=== PATIENT | female | born 2000 | race Hispanic/Latino ===

== ENCOUNTER 2020-05-06 17:42 | Outpatient (CLI) | payer OTHER ==
[~2020-05-06] VITALS: Ht 154.9 cm; Wt 92.4 kg
[2020-05-06 18:03] VITALS: BP 139/88
[2020-05-06] MEDS ORDERED: PRENTAB9 PO (18:10)
--- NOTE | 2020-05-06 18:58 | IPNPDOC ---
Text Note Date of Service The patient was seen on 05/06/20. NOTE Patient is 20yo at 39.6wks by LMP c/w 7wk US. C/o dampness around 6am. No further leakage all day. No contractions. No gush of fluid or bleeding. Good movement. PE: VS WNL GEN NAD, Comfortable SVE: thick whiute clumpy discharge, no fluid. Nitrazine negative FHT: Category 1, 140s, reactive, no decels. contractions infrequent. A/P: Fetus reassuring. Patient not in labor and no rupture of membranes. Patient given labor precautions, rupture of membranes precautions and kick counts. She was also told to hydrate up to 3L per day due to the increased heat, She has a follow up appt this week. VS,Fishbone, I+O VS, Fishbone, I+O Vital Signs Date Time Temp Pulse Resp B/P (MAP) Pulse Ox O2 Delivery O2 Flow Rate FiO2 05/06/20 18:03 97.7 112 18 139/88 (105) Missy Estrada MD May 06, 2020 18:58
[2020-05-06] MEDS ORDERED: FLUCONAZOLE 50MG TABLET PO ONE (19:00)
== END 2020-05-06 19:05 | disposition home or self-care (01) ==
LOC: M LDO 17:42
PROVIDERS: ATTEND Obstetrics & Gynecology
DX: O26.893 Other specified pregnancy related conditions, third trimester (principal); B37.3 Candidiasis of vulva and vagina; Z3A.39 39 weeks gestation of pregnancy
CPT/HCPCS: 59025; G0378; G0463

== ENCOUNTER 2020-05-15 15:15 | Inpatient (IN) | payer OTHER ==
[2020-05-15] VITALS (7 sets, daily range): BP systolic 115–135; BP diastolic 57–74
[~2020-05-15] VITALS: Ht 154.9 cm; Wt 93.3 kg
[~2020-05-15 15:15] MED LIST: PRENTAB9 PO
[2020-05-15] MEDS ORDERED: LR 1,000 ML IV SCH (15:38)
[2020-05-15 16:08] LABS: HEMATOCRIT 37.1 % (36.0-47.0); HEMOGLOBIN 12.5 g/dl (12.0-15.5); MEAN CORPUSCULAR HEMOGLOBIN 26.5 pg (27.0-33.0); MEAN CORPUSCULAR HGB CONC 33.7 g/dl (32.0-36.5); MEAN CORPUSCULAR VOLUME 78.8 fl (80.0-96.0); PLATELET COUNT, AUTOMATED 234 10^3/uL (150-450); RED BLOOD COUNT 4.71 10^6/uL (4.00-5.40); WHITE BLOOD COUNT 8.1 10^3/uL (4.0-10.0)
[2020-05-15] MEDS ORDERED: miSOPROStol 25 MCG 1/4 TAB (S0191) SL ONE (16:15)
--- NOTE | 2020-05-15 16:23 | HPEPDOC ---
Obstetrical History & Physical General Date of Admission May 15, 2020 at 15:15 History of Present Illness patient is a 20 yo G1 @ 41+1wks gestation presents for IOL. patient denies CTX. Chief Complaint: Induction of labor Information Provided By: Patient Age: 20 : 1 Term: 0 Care Care: Good Care Dating Final EDC: May 07, 2020 Final EDC for Daily Update: May 07, 2020 Final EDC by: 1st trimester (US) (on [id number] @ 7+4wks) Past Medical History Past Obstetrical History : Past Obstetrical History: Primgravida Past Medical History Medical History denies Surgical History: Other (leg cyst removed) Family History Significant Family History: No pertinent family hx Social History Marital Status: Family situation: Spouse/partner home * Smoker: non-smoker Alcohol: Denies Drugs: denies Imunizations Tdap status: needs Influenza Status: current Allergies Coded Allergies: ibuprofen (Verified Allergy, Severe, throat swells, 05/06/20) Medications Scheduled No.137/Iron/Folic Acd ( Vitamin Tablet) 1 Each Tablet, 1 TAB PO DAILY Physical Examination Physical Examination GENERAL: Alert and oriented times three. BREAST: . ABDOMEN: Gravid and non-tender to touch. FETUS: Is vertex (VTX) by sterile vaginal examination (SVE), fetus is vertex (VTX) by Claudio. HEART RATE: Regular rate and rhythm. LUNGS: Clear to auscultation (CTA). EXTREMITIES: No edema/erythema/tenderness EFW: 3800gm Laboratory Data 24H LABS Laboratory Tests 2 05/15/20 15:42: Serology Scanned Report Hepatitis B Testing 05/15/20 15:53: Pertinent Laboratoy Data Blood Type: O- RBC Antibody Screen: Negative HIV: Negative Hepatitis B: Negative Rapid Plasma Reagin: Nonreactive Rubella: Immune Varicella: Immune Group B Streptococcus: Positive Cystic Fibrosis: Positive (spouse neg) Anatomy Ultrasound Placenta Location: Anterior Normal Anatomy: Yes Placenta Previa: No Vaginal Examination Dilation: None Cervical Consistency: Soft Cervical Position: Posterior Presentation: Cephalic presentation Assessment Heart Rate (FHR): 135 Variability: Moderate Accelerations: Positive Decelerations: None Tocometer Contractions: No Assessment/Plan Assessment patient is a 20 yo G1 @ 41+1wks gestation admitted for IOL. patient counseled regarding iol using cytotec, douglass bulb, oxytocin, arom as indicated. internal and external monitoring discussed. Risk of emergent section, infection, bleeding requiring blood transfusion, use of forceps and vacuums for assisted vaginal delivery, and episiotomy discussed with patient. Plan Admit and orient. Solution Make Up Operator and consent. Diet: regular Group B Streptococcus (GBS) positive. Labs and intravenous (IV) per unit protocol. anesthesia consult as indicated pcn for GBS prophy once in active labor pelvis adequate for trial of labor. DO TANYA Epstein LUAT N. May 15, 2020 16:23
[2020-05-15] MEDS: miSOPROStol 25 MCG 1/4 TAB (S0191) SL SCH (20:29)
[2020-05-16] VITALS (42 sets, daily range): BP systolic 102–147; BP diastolic 56–93
[2020-05-16] MEDS: miSOPROStol 25 MCG 1/4 TAB (S0191) SL SCH (01:28)
[2020-05-16] MEDS ORDERED: MORPHINE 10 MG/ML 1ML VIAL (J2270) IM ONE (07:00)
[2020-05-16] MEDS ORDERED: MORPHINE 10 MG/ML 1ML VIAL (J2270) IV ONE (07:00)
[2020-05-16] MEDS ORDERED: PROMETHAZINE INJ 25 MG/ML VIAL (J2550) IV ONE (07:00)
[2020-05-16] MEDS ORDERED: PROMETHAZINE INJ 25 MG/ML VIAL (J2550) IV PRN (08:00)
[2020-05-16] MEDS ORDERED: BUTORPHANOL 2 MG/ML INJ (J0595) IV ONE (08:00)
--- NOTE | 2020-05-16 08:39 | IPNPDOC ---
Text Note Date of Service The patient was seen on 05/16/20. NOTE patient feeling painful contractions. she received cytotec x 3 (25mcg, 50mcg x 2) buccal. vitals: normal fht: CAT I toco: ctx q 2-3mins ce: /-2 a/p patient in early labor, douglass bulb placed with 80cc cervical side. pain medication as needed. Start GBS once douglass bulb comes out. Tete, VS,Khoa, I+O VS, Fishbone, I+O Laboratory Tests 05/15/20 15:53 Vital Signs Date Time Temp Pulse Resp B/P (MAP) Pulse Ox O2 Delivery O2 Flow Rate FiO2 05/16/20 08:05 20 05/16/20 07:11 74 119/65 (83) 05/16/20 05:05 97.8 05/15/20 19:12 98 Room Air BLOSSOM MARTÍNEZ DO May 16, 2020 08:39
[2020-05-16] MEDS ORDERED: OXYTOCIN 30 UNITS IN 0.9% NaCl 500ML IV BAG (J2590) As Ordered ONE (13:13)
[2020-05-16] MEDS ORDERED: PENICILLIN G POTASSIUM IV 5 MU in D5W MINI-BAG PLUS 100 ML IV STA (13:17)
[2020-05-16] MEDS ORDERED: OXYTOCIN DRIP 30 UNITS in IV 1 EA IV SCH (13:30)
[2020-05-16] MEDS: PENICILLIN G POTASSIUM IV 2.5 MU in IV 1 EA IV SCH ×2 (17:42→21:51)
--- NOTE | 2020-05-16 18:16 | IPNPDOC ---
Obstetrical Progress Note Date of Service May 16, 2020 Subjective Feeling more uncomfortable. Requesting epidural. Pitocin currently at 4 milliunits. Objective Vital Signs Date Time Temp Pulse Resp B/P (MAP) Pulse Ox O2 Delivery O2 Flow Rate FiO2 05/16/20 17:24 96 18 133/66 (88) 05/16/20 14:54 99.1 05/15/20 19:12 98 Room Air Assessment Variability: Moderate Accelerations: Positive Heart Rate Tracing: Category I Tocometer Contractions: Yes Frequency: regular Sterile Vaginal Examination Dilation: 5 cm (AROM clear) Effacement (%): 80% Station: -1 Cervical Position: Anterior Postion/Presentation: Cephalic presentation Assessment and Plan Age: 20 : 1 Status: Reassuring Anticipate: Vaginal Delivery Additional Comments Epidural request. Reassuring status. Anticipate spontaneous vaginal delivery NIKKIE LEDEZMA MD. May 16, 2020 18:16
[2020-05-16] MEDS ORDERED: FENTANYL 2MCG/ML ROPIVACAINE 0.2% IN 0.9% NACL 100ML IVBAG As Ordered ONE (18:56)
[2020-05-16] MEDS ORDERED: LACTATED RINGER'S 1000 ML IV PRN (19:45)
[2020-05-16] MEDS ORDERED: ePHEDrine SULFATE 25 MG/5 ML(5MG/ML) SYRINGE IV PRN (19:45)
[2020-05-16] MEDS ORDERED: ONDANSETRON 4MG/2ML VIAL IV PRN (19:45)
[2020-05-16] MEDS ORDERED: REFRIGERATOR IV KEYS XX PRN (19:45)
[2020-05-16] MEDS ORDERED: EPIDURAL/PCA KEYS XX PRN (19:45)
[2020-05-16] MEDS ORDERED: EPIDURAL COMMENT XX SCH (19:45)
[2020-05-16] MEDS ORDERED: diphenhydrAMINE 50MG/ML VIAL (J1200) IV PRN (19:45)
[2020-05-16] MEDS ORDERED: NALOXONE INJ 0.4MG/1ML VIAL (J2310 PER 1MG) IV PRN (19:45)
[2020-05-16] MEDS ORDERED: FENTANYL/ROPIVACAINE/NACL BAG 100 ML EPIDURAL SCH (19:45)
[2020-05-16] MEDS: LR 1,000 ML IV SCH (21:17)
[2020-05-17] VITALS (36 sets, daily range): BP systolic 100–148; BP diastolic 55–87
[2020-05-17] MEDS: LR 1,000 ML IV SCH ×4 (01:10→15:25)
[2020-05-17] MEDS: PENICILLIN G POTASSIUM IV 2.5 MU in IV 1 EA IV SCH ×2 (02:13→05:30)
[2020-05-17] MEDS ORDERED: OXYTOCIN DRIP 30 UNITS in IV 1 EA IV SCH (03:38)
--- NOTE | 2020-05-17 03:43 | DNPDOC ---
[facility] Delivery Note Delivery Note DATE OF DELIVERY: 05/17/2020 TIME OF : 0313 GENDER: Male. APGARS: 9 and 9. WEIGHT: 4030 grams or 8 pounds 14 ounces. LACERATIONS: Right labial ANESTHESIA: Epidural. ESTIMATED BLOOD LOSS: 300ml COUNTS: 5 laparotomy sponges accounted for prior to after delivery. One sharps removed delivery field. DELIVERY NOTE: On 05/17/2020 at 0313, is a 20-year-old 1, now para 1, had a spontaneous vaginal delivery of viable male , Apgars, 9 and 9, and weight was 4030 g or 8 lbs. 14 oz. Head was delivered occiput anterior (OA). Nuchal cord was manually reduced followed by delivery of the shoulders and corpus. Infant was handed to mom with a good cry. Cord was clamped times two and was cut by the father of baby under my direction. Placenta was then drained and delivered grossly intact. A premixed bag of 500 mL of normal saline with 30 units of Pitocin was then bolused along with uterine massage until the uterus was firm. On inspection, there was a right labial laceration which was repaired with 3-0 Vicryl. On reinspection, cervix, vagina, perineum was grossly intact and hemostatic. Mom and baby in recovery on stable condition. The couples decided to remain in son , NIKKIE Wadsworth MD. May 17, 2020 03:43
[2020-05-17] MEDS ORDERED: MOM 30ML SUSPENSION UDC PO PRN ×2 (03:45→11:00)
[2020-05-17] MEDS ORDERED: ANUSOL HC CREAM 30GM TOP PRN (03:45)
[2020-05-17] MEDS ORDERED: ACETAMINOPHEN 500 MG TAB PO PRN (03:45)
[2020-05-17] MEDS ORDERED: RHOGAM 300 MCG (1500 IU) INJ (J2790) IM SCH ×2 (03:45→07:00)
[2020-05-17] MEDS ORDERED: ACETAMINOPHEN TAB 650MG DOSE (2X325MG) PO PRN (03:45)
[2020-05-17] MEDS ORDERED: MEASLES,MUMPS,RUBELLA VACCINE INJ (MMR-II) (90707) SC SCH (03:45)
[2020-05-17] MEDS ORDERED: DIBUCAINE 1% OINTMENT 30GM TOP PRN (03:45)
[2020-05-17] MEDS ORDERED: METHYLERGONOVINE MALEATE 0.2 MG TAB PO PRN (03:45)
[2020-05-17] MEDS ORDERED: DOCUSATE SODIUM 100 MG CAP PO PRN (03:45)
[2020-05-17] MEDS ORDERED: miSOPROStol 200 MCG TAB (S0191) As Ordered ONE (08:18)
[2020-05-17] MEDS ORDERED: OXYTOCIN 30 UNITS IN 0.9% NaCl 500ML IV BAG (J2590) As Ordered ONE ×2 (08:20→09:02)
[2020-05-17] MEDS ORDERED: ROCURONIUM BROMIDE 50 MG/5 ML VIAL As Ordered ONE (08:41)
[2020-05-17] MEDS ORDERED: fentaNYL 250 MCG/5 ML INJECTION (J3010) As Ordered ONE (08:45)
[2020-05-17] MEDS ORDERED: BUPIVACAINE HCL 0.5% 30 ML VIAL As Ordered ONE (08:50)
[2020-05-17] MEDS ORDERED: cefTRIAXone SOD 1GM VIAL (J0696 PER 250MG) As Ordered ONE (08:55)
[2020-05-17] MEDS: DOCUSATE SODIUM 100 MG CAP PO SCH ×2 (09:00→20:19)
[2020-05-17] MEDS ORDERED: PRENATAL VITAMINS CHEWABLE TABLET PO SCH (09:00)
[2020-05-17] MEDS ORDERED: SUCCINYLCHOLINE 100 MG/5 ML SYRINGE (J0330) As Ordered ONE (09:10)
[2020-05-17] MEDS ORDERED: propofoL 200 MG/20 ML VIAL As Ordered ONE (09:10)
[2020-05-17] MEDS ORDERED: ONDANSETRON 4MG/2ML VIAL As Ordered ONE (09:11)
[2020-05-17] MEDS ORDERED: LIDOCAINE 2% 100MG/5ML SDV (FOR ANES.) As Ordered ONE (09:11)
[2020-05-17] MEDS ORDERED: dexameTHASONE 4 MG/ML 1ML VIAL (J1100 PER 1MG) As Ordered ONE (09:11)
[2020-05-17] MEDS ORDERED: OXYTOCIN INJ 10 UNITS/ML VIAL (J2590) As Ordered ONE (09:19)
[2020-05-17] MEDS ORDERED: SUGAMMADEX SODIUM 500 MG/5 ML VIAL (BRIDION) As Ordered ONE (09:20)
[2020-05-17] MEDS ORDERED: METHYLERGONOVINE MALEATE 0.2 MG TAB PO SCH (10:00)
[2020-05-17] MEDS ORDERED: ONDANSETRON 4MG/2ML VIAL IV PRN (10:00)
[2020-05-17] MEDS ORDERED: fentaNYL 100 MCG/2 ML INJECTION (J3010) IV PRN (10:00)
[2020-05-17] MEDS ORDERED: oxyCODONE 5MG TAB PO PRN (10:00)
[2020-05-17] MEDS ORDERED: METHYLERGONOVINE MALEATE 0.2 MG/ML VIAL (J2210) IM STA (13:02)
[2020-05-17] MEDS ORDERED: OXYTOCIN DRIP 30 UNITS in IV 1 EA IV STA (13:02)
[2020-05-17] MEDS ORDERED: miSOPROStol 200 MCG TAB (S0191) PR ONE (13:15)
[2020-05-17 13:28] LABS: INR 1.07; PROTHROMBIN TIME 13.6 SECONDS (11.8-14.0)
[2020-05-17 13:29] LABS: PARTIAL THROMBOPLASTIN TIME 29.4 SECONDS (25.0-38.4)
[2020-05-17 13:32] LABS: D-DIMER QUANT 1733.54 ng/ml (<500)
--- NOTE | 2020-05-17 13:58 | IPNPDOC ---
Text Note Date of Service The patient was seen on 05/17/20. NOTE S: Patient more comfortable. Bleeding a lot less. O: VS WNL, good urine output. GEN: NAD Fundus: umbilicus, mildly tender Perineum: mildly swollen Expressed approx 20cc blood LE: +SCDS Labs reviewed A/P: DOS for PPH. Patient much improved and bleeding controlled. PPH was l eading to DIC but now improving. Will continue to monitor. Dilaudid for pain and x1dose morphine IV. VS,Fishbone, I+O VS, Fishbone, I+O Laboratory Tests 05/17/20 12:59 Vital Signs Date Time Temp Pulse Resp B/P (MAP) Pulse Ox O2 Delivery O2 Flow Rate FiO2 05/17/20 13:39 94 18 116/61 (79) 05/17/20 10:15 98.8 98 Room Air 05/17/20 09:33 2 I&O- Last 24 Hours up to 6 AM 05/17/20 05:59 Intake Total 2962 ml Output Total 1075 ml Balance 1887 ml Missy Estrada MD May 17, 2020 13:58
[2020-05-17] MEDS ORDERED: MORPHINE 4 MG/ML 1ML VIAL/SYRINGE (J2270) IV ONE (14:00)
[2020-05-17] MEDS: METHYLERGONOVINE MALEATE 0.2 MG TAB PO SCH ×2 (14:01→20:18)
[2020-05-17 19:24] LABS: HEMATOCRIT 28.3 % (36.0-47.0); HEMOGLOBIN 9.6 g/dl (12.0-15.5); MEAN CORPUSCULAR HEMOGLOBIN 27.7 pg (27.0-33.0); MEAN CORPUSCULAR HGB CONC 33.9 g/dl (32.0-36.5); MEAN CORPUSCULAR VOLUME 81.6 fl (80.0-96.0); PLATELET COUNT, AUTOMATED 172 10^3/uL (150-450); RED BLOOD COUNT 3.47 10^6/uL (4.00-5.40); WHITE BLOOD COUNT 11.7 10^3/uL (4.0-10.0)
[2020-05-17] MEDS: HYDROmorphone 2 MG TAB PO PRN (20:19)
[2020-05-18] MEDS: METHYLERGONOVINE MALEATE 0.2 MG TAB PO SCH ×2 (01:47→07:47)
[2020-05-18] MEDS: HYDROmorphone 2 MG TAB PO PRN (01:47)
[2020-05-18 01:55] VITALS: BP 105/51
[2020-05-18 05:58] VITALS: BP 109/68
[2020-05-18] MEDS: LR 1,000 ML IV SCH ×2 (05:58→16:00)
[2020-05-18] MEDS ORDERED: RHOGAM 300 MCG (1500 IU) INJ (J2790) IM SCH (07:30)
[2020-05-18] MEDS: PRENATAL VITAMINS CHEWABLE TABLET PO SCH (07:47)
[2020-05-18] MEDS: DOCUSATE SODIUM 100 MG CAP PO SCH ×2 (07:47→20:05)
[2020-05-18 08:04] LABS: HEMATOCRIT 26.2 % (36.0-47.0); HEMOGLOBIN 8.7 g/dl (12.0-15.5); MEAN CORPUSCULAR HEMOGLOBIN 27.4 pg (27.0-33.0); MEAN CORPUSCULAR HGB CONC 33.2 g/dl (32.0-36.5); MEAN CORPUSCULAR VOLUME 82.4 fl (80.0-96.0); PLATELET COUNT, AUTOMATED 163 10^3/uL (150-450); RED BLOOD COUNT 3.18 10^6/uL (4.00-5.40); WHITE BLOOD COUNT 9.4 10^3/uL (4.0-10.0)
--- NOTE | 2020-05-18 12:13 | IPN ---
DATE: 05/18/2020 This lady had a spontaneous vaginal delivery of live male infant, score of 9 and 9,1 and 5 minutes respectively 4030 grams, 8 pounds, 14 ounces, had an epidural in place, small right labial laceration repaired. Uneventful delivery. She six hours later had a massive bleed, had a class III hemorrhage, was taken to the operating room for manual exploration of the uterus, suction curettage, a repair of labial laceration, right vaginal wall laceration was placed on a Methergine series, had a Cytotec 1000 mg per rectum and an IM Methergine and Pitocin running in the OR. She had 2 units of blood packed cells in the operating theatre and subsequently had a Trammell catheter, which was removed this morning, having a good urinary output. Her initial hemoglobin was 12.5, hematocrit 37.1 and platelets were 234. Post blood transfusion: Hemoglobin 9.6, hematocrit 28.3 and platelets were 172. Overnight, she was symptomatic with dizziness and difficulty negotiating to the bathroom, therefore, we left the Trammell catheter in. This morning she is feeling much better. Trammell catheter was removed and we are awaiting her to void and measure her output. We discontinued uterine fundal checks as her uterus was firm. Her lochia was moderate and her perineum was healing. Her blood pressure this morning is 109/68, respirations are 20, pulse 86, afebrile at 98.0. She did have 1 gram of Zosyn in the operating theatre. Our plan of care today is to continue with her as far as care. Repeat her CBC this morning. She is doing well with breast-feeding. Baby is probably going to go under lights because of bilirubin. We will keep her one more day for precautionary guarding, delayed hemorrhage and to supplement her vitamins with ferrous sulfate. Presently, the patient is doing well, is much better than yesterday. Plans for discharge tomorrow pending baby's release from the lights.
[2020-05-18] MEDS: ACETAMINOPHEN 500 MG TAB PO PRN (13:57)
[2020-05-18 14:00] VITALS: BP 112/55
[2020-05-18 18:13] VITALS: BP 118/67
[2020-05-18 23:15] VITALS: BP 111/70
[2020-05-19 02:00] VITALS: BP 117/56
[2020-05-19] MEDS: ACETAMINOPHEN 500 MG TAB PO PRN (05:52)
[2020-05-19 06:00] VITALS: BP 108/56
--- NOTE | 2020-05-19 07:46 | IPNPDOC ---
Progress Note Date of Service: May 19, 2020 Day#: 2 Progress Note SUBJECT: Patient is a 20-year-old 1 now Para 1 status post uncomplicated spontaneous vaginal delivery c/b delayed PPH requiring Suction D&C and 2Un PRBC, doing well day # 2. She has been ambulating, voiding spontaneously without issue and tolerating regular diet. Breast feeding without issue. Reports lochia is like a normal period. Patient is ambulating well without dizziness. Reports some cramping with . Denies any pain. Has some tiredness. C/o LE swelling and pain R>L. OBJECTIVE: VITAL SIGNS: Within normal limits, afebrile. GENERAL: No acute distress HEENT: Mucous membranes are moist BREAST: Nontender, no erythema CARDIOVASCULAR: RRR RESPIRATORY: Bilaterally clear ABDOMINAL EXAMINATION: Soft, appropriate tenderness, nondistended, fundus -1 PERINEUM: Intact, minimal lochia EXTREMITIES: +2 edema, mildly TTP in right calf ASSESSMENT: Patient is a 20-year-old 1 now Para 1 status post uncomplicated spontaneous vaginal delivery c/b delayed PPH requiring Suction D&C and 2Un PRBC, doing well day # 2. Vitals within normal limits, af ebrile, hemodynamically stable with no evidence of infection. PLAN: 1. Continue care. 2. Tylenol for pain. 3. Encourage breast feeding and ambulation. 4. LE dopplers to ensure/rule out DVT VS, I&O, 24H, Fishbone Vital Signs/I&O Vital Signs Date Time Temp Pulse Resp B/P (MAP) Pulse Ox O2 Delivery O2 Flow Rate FiO2 05/18/20 18:13 98.1 92 18 118/67 (84) 99 05/18/20 14:00 Room Air 05/17/20 09:33 2 I&O- Last 24 Hours up to 6 AM 05/18/20 06:00 Intake Total 805 ml Output Total 4608 ml Balance -3803 ml Laboratory Data 24H LABS Vital Signs Date Time Temp Pulse Resp B/P (MAP) Pulse Ox O2 Delivery O2 Flow Rate FiO2 05/19/20 06:00 98.2 88 18 108/56 (73) 99 Room Air 05/19/20 02:00 98.1 88 18 117/56 (76) 99 Room Air 05/18/20 23:15 98.2 90 16 111/70 (84) 100 Room Air 05/18/20 18:13 98.1 92 18 118/67 (84) 99 05/18/20 14:00 97.7 104 17 112/55 (74) 99 Room Air Intake & Output0 05/19/20 05:59 Output Total 750 ml Balance -750 ml Current Medications Medications (Trade) Dose Ordered Sig/Nory Route PRN Reason Start Time Stop Time Status Last Admin Dose Admin Acetaminophen (Tylenol Tab) 1,000 mg Q8H PRN PO FEVER/HEADACHE 05/17/20 11:00 05/19/20 05:52 1,000 MG Dibucaine (Dibucaine 1%) Apply to perineum Q4HP PRN TOP PAIN 05/17/20 03:45 05/17/20 06:33 1 DOSE Docusate Sodium (Colace) 100 mg BID PO 05/17/20 09:00 05/18/20 20:05 100 MG Hydromorphone HCl (Dilaudid) 2 mg Q6HP PRN PO MODERATE/SEVERE PAIN (PS 5-10) 05/17/20 14:00 05/18/20 01:47 2 MG Methylergonovine Maleate (Methergine) 0.2 mg Q4HP PRN PO UTERINE ATONY/BLEEDING 05/17/20 03:45 05/17/20 08:20 0.2 MG Prenat Multivit/ [place]/Iron/Folic Ac ( Vitamins) 1 tab DAILY PO 05/18/20 09:00 05/18/20 07:47 1 TAB Rho Immune Globulin (Rhogam Injection) 300 mcg ASDIRECTED IM 05/18/20 07:30 05/18/20 07:46 300 MCG Laboratory Tests 2 05/18/20 07:36: Nucleated Red Blood Cells % (auto) 0.0 CBC/BMP Laboratory Tests 05/18/20 07:36 Missy Estrada MD May 18, 2020 21:08
[2020-05-19] MEDS: PRENATAL VITAMINS CHEWABLE TABLET PO SCH (08:46)
[2020-05-19] MEDS: DOCUSATE SODIUM 100 MG CAP PO SCH ×2 (08:46→21:01)
--- NOTE | 2020-05-19 09:05 | REP ---
DEEP VENOUS ULTRASONOGRAPHY BILATERAL THIGHS, RULE OUT DVT: REASON: Pain and swelling. TECHNIQUE: Multiple ultrasonographic images of the deep venous structures of the bilateral thighs were obtained from the common femoral vein to the popliteal vein along with Doppler interrogation and color flow Doppler images. FINDINGS: There is no abnormal echogenic material seen within any of the visualized deep venous structures that would suggest acute thrombosis. Coaptation is unremarkable throughout. Doppler interrogation shows an expected response to respiratory variability and augmentation. The color flow images show what appears to be a normal vascular pattern throughout. IMPRESSION: There is no ultrasonographic evidence of deep venous thrombosis involving any of the visualized deep venous structures of the bilateral thigh, as described above. Electronically Signed by Costa Cote DO 05/19/2020 11:25 A
[2020-05-19 10:00] VITALS: BP 98/53
[2020-05-19 18:00] VITALS: BP 107/55
[2020-05-20 06:00] VITALS: BP 117/74
[2020-05-20] MEDS: DOCUSATE SODIUM 100 MG CAP PO SCH (09:30)
[2020-05-20] MEDS: PRENATAL VITAMINS CHEWABLE TABLET PO SCH (09:30)
--- NOTE | 2020-05-24 12:02 | IPN ---
DATE: 05/17/2020 This patient and her requested circumcision of their male . After discussing risks and benefits of circumcision, the medical and nonmedical indications, penile block, and aftercare, expressed understanding of penile block, aftercare, and bleeding, signed the consent form. All questions were answered. A 20-minute discussion. We await the clearance by the administrative office specialist.
== END 2020-05-20 13:10 | disposition home or self-care (01) | DRG 806 ==
LOC: M LDI 15:15 → M OBS 05-17 05:36 → M LDI 05-17 11:59 → M OBS 05-17 19:45
PROVIDERS: ADMIT Obstetrics & Gynecology; ATTEND Obstetrics & Gynecology
PROC: 3E0P7GC Introduction of Other Therapeutic Substance into Female Reproductive, Via Natural or Artificial Opening (ICD-10-PCS; 2020-05-15)
PROC: 0HQ9XZZ Repair Perineum Skin, External Approach (ICD-10-PCS; 2020-05-17)
PROC: 30233N1 Transfusion of Nonautologous Red Blood Cells into Peripheral Vein, Percutaneous Approach (ICD-10-PCS; 2020-05-17)
PROC: 0UC97ZZ Extirpation of Matter from Uterus, Via Natural or Artificial Opening (ICD-10-PCS; 2020-05-17)
PROC: 10E0XZZ Delivery of Products of Conception, External Approach (ICD-10-PCS; principal; 2020-05-17 08:40)
DX: O48.0 Post-term pregnancy (principal); Z37.0 Single live birth; O72.1 Other immediate postpartum hemorrhage; Z3A.41 41 weeks gestation of pregnancy; O99.824 Streptococcus B carrier state complicating childbirth; O69.81X0 Labor and delivery complicated by cord around neck, without compression, not applicable or unspecified; O70.0 First degree perineal laceration during delivery

== ENCOUNTER 2022-01-25 16:50 | Outpatient (CLI) | payer OTHER ==
[~2022-01-25] VITALS: Ht 157.5 cm; Wt 91.3 kg
[2022-01-25 17:17] VITALS: BP 135/77
[2022-01-25 17:29] VITALS: BP 121/77
[2022-01-25 18:16] LABS: HEMOGLOBIN 10.8 g/dl (12.0-15.5); MEAN CORPUSCULAR HEMOGLOBIN 24.3 pg (27.0-33.0); MEAN CORPUSCULAR HGB CONC 32.7 g/dl (32.0-36.5); MEAN CORPUSCULAR VOLUME 74.2 fl (80.0-96.0); PLATELET COUNT, AUTOMATED 256 10^3/uL (150-450); RED BLOOD COUNT 4.45 10^6/uL (4.00-5.40); WHITE BLOOD COUNT 7.8 10^3/uL (4.0-10.0)
[2022-01-25 18:44] LABS: ALBUMIN 2.5 GM/DL (3.2-5.2); ALT/SGPT 69 U/L (12-78); BILIRUBIN,TOTAL 0.5 MG/DL (0.2-1.0); BLOOD UREA NITROGEN 7 MG/DL (7-18); CALCIUM LEVEL 8.5 MG/DL (8.5-10.1); CARBON DIOXIDE LEVEL 24 MEQ/L (21-32); CHLORIDE LEVEL 110 MEQ/L (98-107); CREATININE FOR GFR 0.47 MG/DL (0.55-1.30); GLOMERULAR FILTRATION RATE > 60.0 (>60); GLUCOSE, FASTING 87 MG/DL (70-100); LIPASE 163 U/L (73-393); SODIUM LEVEL 140 MEQ/L (136-145)
[2022-01-25 19:57] VITALS: BP 132/79
== END 2022-01-25 20:25 | disposition home or self-care (01) ==
LOC: M LDO 16:50
PROVIDERS: ATTEND Obstetrics & Gynecology
DX: O26.893 Other specified pregnancy related conditions, third trimester (principal); R10.13 Epigastric pain; Z3A.39 39 weeks gestation of pregnancy; Z88.6 Allergy status to analgesic agent
CPT/HCPCS: 36415; 59025; 76705; 76815; 80053; 83690; 85027; G0463

== ENCOUNTER 2022-02-01 07:19 | Inpatient (IN) | payer OTHER ==
[~2022-02-01] VITALS: Ht 157.5 cm; Wt 90.5 kg
[2022-02-01] MEDS ORDERED: LACTATED RINGER'S 1000 ML IV STA (08:22)
[2022-02-01] MEDS ORDERED: OXYTOCIN DRIP 30 UNITS in IV 1 EA IV PRN (08:25)
[2022-02-01] MEDS ORDERED: LR 1,000 ML IV SCH ×2 (08:25→13:00)
[2022-02-01] MEDS ORDERED: TRANEXAMIC ACID INJection 1,000 MG in NS 100 ML IV PRN (08:25)
[2022-02-01] MEDS ORDERED: ceFAZolin SOD 2 GM in IV 1 EA IV ONE (08:25)
[2022-02-01] MEDS ORDERED: METHYLERGONOVINE MALEATE 0.2 MG/ML VIAL (J2210) IM PRN (08:25)
[2022-02-01] MEDS ORDERED: BICITRA 30ML SOLN UDC PO ONE (08:25)
[2022-02-01] MEDS ORDERED: HOME MED LIST COMPLETE! XX SCH (08:30)
[2022-02-01 08:52] LABS: HEMATOCRIT 33.4 % (36.0-47.0); HEMOGLOBIN 10.9 g/dl (12.0-15.5); MEAN CORPUSCULAR HEMOGLOBIN 24.7 pg (27.0-33.0); MEAN CORPUSCULAR HGB CONC 32.6 g/dl (32.0-36.5); MEAN CORPUSCULAR VOLUME 75.7 fl (80.0-96.0); PLATELET COUNT, AUTOMATED 233 10^3/uL (150-450); RED BLOOD COUNT 4.41 10^6/uL (4.00-5.40); WHITE BLOOD COUNT 7.7 10^3/uL (4.0-10.0)
[2022-02-01] MEDS ORDERED: NALOXONE INJ 0.4MG/1ML VIAL (J2310 PER 1MG) IV PRN ×2 (11:38)
[2022-02-01] MEDS ORDERED: diphenhydrAMINE 50MG/ML VIAL (J1200) IV PRN (11:38)
[2022-02-01] MEDS ORDERED: METOCLOPRAMIDE INJ 10MG/2ML VIAL (J2765 PER 1) IV PRN (11:38)
[2022-02-01] MEDS ORDERED: ONDANSETRON 4MG/2ML VIAL IV PRN ×3 (11:38→13:15)
[2022-02-01] MEDS ORDERED: OXYTOCIN INJ 10 UNITS/ML VIAL (J2590) As Ordered ONE (11:45)
[2022-02-01] MEDS ORDERED: MORPHINE PRES-FREE INJ 10 MG/10 ML VIAL As Ordered ONE (11:45)
[2022-02-01] MEDS ORDERED: ONDANSETRON 4MG/2ML VIAL As Ordered ONE (11:46)
[2022-02-01] MEDS ORDERED: ACETAMINOPHEN 1000MG 100ML IV BTL (OFIRMEV) (J0131 PER 10MG) As Ordered ONE (12:09)
[2022-02-01] MEDS ORDERED: MORPHINE 2 MG/ML 1ML VIAL IV PRN (12:45)
[2022-02-01] MEDS ORDERED: DOCUSATE SODIUM 100MG CAPSULE PO PRN (12:45)
[2022-02-01] MEDS ORDERED: ONDANSETRON 4MG TAB PO PRN (12:45)
[2022-02-01] MEDS ORDERED: RHOGAM 300 MCG (1500 IU) INJ (J2790) IM SCH (12:45)
[2022-02-01] MEDS ORDERED: SIMETHICONE 80MG CHEW TAB PO PRN (12:45)
[2022-02-01] MEDS ORDERED: MEASLES,MUMPS,RUBELLA VACCINE INJ (MMR-II) (90707) SC SCH (12:45)
[2022-02-01] MEDS ORDERED: oxyCODONE 5MG TAB PO PRN ×3 (12:45→13:15)
[2022-02-01] MEDS ORDERED: OXYTOCIN DRIP 30 UNITS in IV 1 EA IV SCH (13:00)
[2022-02-01] MEDS ORDERED: OXYTOCIN 30 UNITS IN 0.9% NaCl 500ML IV BAG (J2590) As Ordered ONE (13:06)
[2022-02-01] MEDS ORDERED: MEPERIDINE INJ 25 MG/ML VIAL (J2175) IV PRN (13:15)
[2022-02-01] MEDS ORDERED: HYDROMORPHONE HCL 0.5 MG/ 0.5 ML SYRINGE (J1170 PER 1) IV PRN (13:15)
[2022-02-01] MEDS ORDERED: fentaNYL 100 MCG/2 ML INJECTION IV PRN (13:15)
[2022-02-01] MEDS ORDERED: oxyCODONE 5MG TAB As Ordered ONE (13:36)
[2022-02-01 14:23] VITALS: BP 117/66
[2022-02-01 15:00] VITALS: BP 123/70
[2022-02-01 15:30] VITALS: BP 117/59
[2022-02-01 16:24] VITALS: BP 120/66
[2022-02-01 18:00] VITALS: BP 118/58
[2022-02-01] MEDS: ACETAMINOPHEN 500 MG TAB PO SCH (18:09)
[2022-02-01 21:47] VITALS: BP 117/67
[2022-02-02] MEDS: ACETAMINOPHEN 500 MG TAB PO SCH ×4 (00:09→18:10)
[2022-02-02 02:00] VITALS: BP 113/61
[2022-02-02 06:00] VITALS: BP 122/65
[2022-02-02] MEDS: PRENATAL VITAMINS CHEWABLE TABLET PO SCH (07:29)
[2022-02-02 07:52] LABS: HEMATOCRIT 30.1 % (36.0-47.0); HEMOGLOBIN 9.9 g/dl (12.0-15.5); MEAN CORPUSCULAR HEMOGLOBIN 24.6 pg (27.0-33.0); MEAN CORPUSCULAR HGB CONC 32.9 g/dl (32.0-36.5); MEAN CORPUSCULAR VOLUME 74.7 fl (80.0-96.0); PLATELET COUNT, AUTOMATED 202 10^3/uL (150-450); RED BLOOD COUNT 4.03 10^6/uL (4.00-5.40); WHITE BLOOD COUNT 8.4 10^3/uL (4.0-10.0)
[2022-02-02 10:00] VITALS: BP 110/58
[2022-02-02 14:00] VITALS: BP 113/61
[2022-02-02 18:00] VITALS: BP 130/70
[2022-02-02 22:00] VITALS: BP 117/72
[2022-02-03] MEDS: ACETAMINOPHEN 500 MG TAB PO SCH ×2 (00:34→06:15)
[2022-02-03 02:00] VITALS: BP 122/66
[2022-02-03 06:00] VITALS: BP 130/77
[2022-02-03] MEDS: PRENATAL VITAMINS CHEWABLE TABLET PO SCH (08:41)
== END 2022-02-03 11:40 | disposition home or self-care (01) | DRG 773 ==
LOC: M LDI 07:19 → M OBS 15:11
PROVIDERS: ADMIT Obstetrics & Gynecology; ATTEND Obstetrics & Gynecology
PROC: 10D00Z1 Extraction of Products of Conception, Low, Open Approach (ICD-10-PCS; principal; 2022-02-01 09:30)
DX: O99.02 Anemia complicating childbirth (principal); E66.9 Obesity, unspecified; O99.214 Obesity complicating childbirth; D64.9 Anemia, unspecified; Z3A.40 40 weeks gestation of pregnancy; Z37.0 Single live birth

== ENCOUNTER 2022-03-22 07:40 | Observation (INO) | payer OTHER ==
[~2022-03-22] VITALS: Ht 157.5 cm; Wt 83.3 kg
[2022-03-22] MEDS ORDERED: NS 1,000 ML IV ONE (08:30)
[2022-03-22 08:52] LABS: BASO % 0.3 % (0.0-1.0); EOS # 0.1 10^3/uL (0.0-0.5); EOS % 1.5 % (0.0-3.0); HEMATOCRIT 42.2 % (36.0-47.0); HEMOGLOBIN 13.9 g/dl (12.0-15.5); LYMPH # 1.6 10^3/uL (1.5-5.0); LYMPH % 20.9 % (24.0-44.0); MEAN CORPUSCULAR HEMOGLOBIN 24.9 pg (27.0-33.0); MEAN CORPUSCULAR HGB CONC 32.9 g/dl (32.0-36.5); MEAN CORPUSCULAR VOLUME 75.6 fl (80.0-96.0); MONO # 0.4 10^3/uL (0.0-0.8); NEUTROPHILS # 5.6 10^3/uL (1.5-8.5); NEUTROPHILS % 71.9 % (36.0-66.0); PLATELET COUNT, AUTOMATED 217 10^3/uL (150-450); RED BLOOD COUNT 5.58 10^6/uL (4.00-5.40); WHITE BLOOD COUNT 7.8 10^3/uL (4.0-10.0)
[2022-03-22 09:26] LABS: ALBUMIN 3.7 GM/DL (3.2-5.2); ALT/SGPT 46 U/L (12-78); BILIRUBIN,DIRECT 0.2 MG/DL (0.0-0.2); BILIRUBIN,TOTAL 0.4 MG/DL (0.2-1.0); BLOOD UREA NITROGEN 21 MG/DL (7-18); CARBON DIOXIDE LEVEL 25 MEQ/L (21-32); CHLORIDE LEVEL 112 MEQ/L (98-107); CREATININE FOR GFR 0.82 MG/DL (0.55-1.30); GLOMERULAR FILTRATION RATE > 60.0 (>60); GLUCOSE, FASTING 97 MG/DL (70-100); LIPASE 235 U/L (73-393); POTASSIUM SERUM 4.2 MEQ/L (3.5-5.1); SODIUM LEVEL 142 MEQ/L (136-145); TOTAL PROTEIN 7.1 GM/DL (6.4-8.2)
[2022-03-22 09:33] LABS: HCG, SERUM QUALITATIVE NEGATIVE (NEGATIVE)
[2022-03-22] MEDS ORDERED: MORPHINE 4 MG/ML 1ML VIAL/SYRINGE IV ONE (09:40)
[2022-03-22] MEDS ORDERED: ONDANSETRON 4MG/2ML VIAL IV ONE (09:40)
[2022-03-22] MEDS ORDERED: PERC5TAB12 PO (14:12)
[2022-03-22] MEDS ORDERED: HOME MED LIST COMPLETE! XX SCH (14:15)
[2022-03-22] MEDS ORDERED: ACETAMINOPHEN TAB 650MG DOSE (2X325MG) PO PRN (14:55)
[2022-03-22] MEDS ORDERED: LR 1,000 ML IV SCH ×2 (15:00→19:20)
[2022-03-22 16:06] LABS: PARTIAL THROMBOPLASTIN TIME 29.7 SECONDS (25.9-37.0)
[2022-03-22 16:21] LABS: INR 0.99; PROTHROMBIN TIME 13.5 SECONDS (12.7-14.5)
[2022-03-22] MEDS ORDERED: ISOVUE-300 61% 50ML VIAL As Ordered ONE (17:19)
[2022-03-22] MEDS ORDERED: fentaNYL 100 MCG/2 ML INJECTION As Ordered ONE (17:36)
[2022-03-22] MEDS ORDERED: LIDOCAINE 2% 100MG/5ML SDV (FOR ANES.) As Ordered ONE (17:36)
[2022-03-22] MEDS ORDERED: propofoL 200 MG/20 ML VIAL As Ordered ONE (17:36)
[2022-03-22] MEDS ORDERED: ROCURONIUM BROMIDE 50 MG/5 ML VIAL As Ordered ONE (17:36)
[2022-03-22] MEDS ORDERED: dexameTHASONE 4 MG/ML 1ML VIAL (J1100 PER 1MG) As Ordered ONE (17:36)
[2022-03-22] MEDS ORDERED: ONDANSETRON 4MG/2ML VIAL As Ordered ONE (17:36)
[2022-03-22] MEDS ORDERED: MIDAZOLAM INJ 2MG/2ML VIAL (J2250 PER 1MG) As Ordered ONE (17:37)
[2022-03-22] MEDS ORDERED: PHENYLephrine 500MCG 5ML (100MCG/ML) SYRINGE As Ordered ONE (18:07)
[2022-03-22] MEDS ORDERED: SUGAMMADEX SODIUM 500 MG/5 ML VIAL (BRIDION) As Ordered ONE (18:32)
[2022-03-22] MEDS ORDERED: LR 1,000 ML IV ONE (19:15)
[2022-03-22] MEDS ORDERED: fentaNYL 100 MCG/2 ML INJECTION IV PRN (19:20)
[2022-03-22] MEDS ORDERED: oxyCODONE 5MG TAB PO PRN (19:20)
[2022-03-22] MEDS ORDERED: METOCLOPRAMIDE INJ 10MG/2ML VIAL (J2765 PER 1) IV PRN (19:20)
[2022-03-22] MEDS ORDERED: ONDANSETRON 4MG/2ML VIAL IV PRN ×2 (19:20→21:50)
[2022-03-22 20:05] VITALS: BP 123/78
[2022-03-22 20:25] VITALS: BP 119/66
[2022-03-22 21:17] VITALS: BP 124/69
[2022-03-22] MEDS ORDERED: MORPHINE 2 MG/ML 1ML VIAL IV PRN (21:50)
[2022-03-22] MEDS ORDERED: PERCOCET 5MG/325MG TAB PO PRN (21:50)
[2022-03-22] MEDS ORDERED: MORPHINE 2 MG/ML 1ML VIAL IV ONE (22:00)
[2022-03-22] MEDS: LR 1,000 ML IV SCH (22:03)
[2022-03-22 22:19] VITALS: BP 121/68
[2022-03-23 01:26] VITALS: BP 107/64
[2022-03-23] MEDS: LR 1,000 ML IV SCH (05:22)
[2022-03-23 05:47] VITALS: BP 111/62
[2022-03-23 06:59] LABS: HEMATOCRIT 38.6 % (36.0-47.0); HEMOGLOBIN 12.7 g/dl (12.0-15.5); MEAN CORPUSCULAR HEMOGLOBIN 24.3 pg (27.0-33.0); MEAN CORPUSCULAR HGB CONC 32.9 g/dl (32.0-36.5); MEAN CORPUSCULAR VOLUME 73.8 fl (80.0-96.0); PLATELET COUNT, AUTOMATED 227 10^3/uL (150-450); RED BLOOD COUNT 5.23 10^6/uL (4.00-5.40); WHITE BLOOD COUNT 5.3 10^3/uL (4.0-10.0)
[2022-03-23 07:16] LABS: ALBUMIN 3.2 GM/DL (3.2-5.2); ALT/SGPT 283 U/L (12-78); BILIRUBIN,DIRECT 0.3 MG/DL (0.0-0.2); BILIRUBIN,TOTAL 0.9 MG/DL (0.2-1.0); BLOOD UREA NITROGEN 9 MG/DL (7-18); CALCIUM LEVEL 9.2 MG/DL (8.5-10.1); CARBON DIOXIDE LEVEL 25 MEQ/L (21-32); CHLORIDE LEVEL 107 MEQ/L (98-107); GLOMERULAR FILTRATION RATE > 60.0 (>60); GLUCOSE, FASTING 86 MG/DL (70-100); POTASSIUM SERUM 4.4 MEQ/L (3.5-5.1); SODIUM LEVEL 140 MEQ/L (136-145); TOTAL PROTEIN 6.4 GM/DL (6.4-8.2)
[2022-03-23] MEDS ORDERED: INFLUENZA QUADRIVALENT PF VACCINE 0.5ML SYRINGE IM ONE (09:00)
== END 2022-03-23 11:35 | disposition home or self-care (01) ==
LOC: M ED 07:40 → M ED INP 14:49 → ENRESERV 15:23 → M MS5PR 19:50
PROVIDERS: ADMIT Internal Medicine; ATTEND Internal Medicine
DX: K80.51 Calculus of bile duct without cholangitis or cholecystitis with obstruction (principal); K83.8 Other specified diseases of biliary tract; Z88.8 Allergy status to other drugs, medicaments and biological substances; Z23 Encounter for immunization
CPT/HCPCS: 36415; 43262; 43264; 74181; 74330; 76705; 80048; 80076; 83690; 84703; 85025; 85027; 85610; 85730; 87426; 90471; 90686; 96361; 96374; 96375; 96376; 99284; J1100; J2250; J2270; J2370; J2405; J3010; Q9967

== ENCOUNTER 2022-04-03 13:29 | Emergency (ER) | payer OTHER ==
[~2022-04-03] VITALS: Ht 157.5 cm; Wt 75.2 kg
[~2022-04-03 13:29] MED LIST changes: +PERC5TAB12 PO
[2022-04-03] MEDS ORDERED: MORPHINE 4 MG/ML 1ML VIAL/SYRINGE IV ONE (14:40)
[2022-04-03] MEDS ORDERED: ONDANSETRON 4MG/2ML VIAL IV ONE (14:40)
[2022-04-03] MEDS ORDERED: NS 1,000 ML IV ONE (14:40)
[2022-04-03 15:56] LABS: BASO % 0.4 % (0.0-1.0); EOS # 0.1 10^3/uL (0.0-0.5); EOS % 0.6 % (0.0-3.0); HEMATOCRIT 42.8 % (36.0-47.0); HEMOGLOBIN 13.7 g/dl (12.0-15.5); LYMPH # 2.4 10^3/uL (1.5-5.0); LYMPH % 22.5 % (24.0-44.0); MEAN CORPUSCULAR HEMOGLOBIN 23.9 pg (27.0-33.0); MEAN CORPUSCULAR VOLUME 74.7 fl (80.0-96.0); MONO # 0.5 10^3/uL (0.0-0.8); NEUTROPHILS # 7.6 10^3/uL (1.5-8.5); NEUTROPHILS % 71.1 % (36.0-66.0); PLATELET COUNT, AUTOMATED 302 10^3/uL (150-450); RED BLOOD COUNT 5.73 10^6/uL (4.00-5.40); WHITE BLOOD COUNT 10.7 10^3/uL (4.0-10.0)
[2022-04-03 16:15] LABS: ALBUMIN 4.1 GM/DL (3.2-5.2); ALT/SGPT 43 U/L (12-78); BILIRUBIN,DIRECT 0.2 MG/DL (0.0-0.2); BILIRUBIN,TOTAL 0.5 MG/DL (0.2-1.0); BLOOD UREA NITROGEN 15 MG/DL (7-18); CALCIUM LEVEL 9.1 MG/DL (8.5-10.1); CARBON DIOXIDE LEVEL 25 MEQ/L (21-32); CHLORIDE LEVEL 108 MEQ/L (98-107); CREATININE FOR GFR 0.72 MG/DL (0.55-1.30); GLOMERULAR FILTRATION RATE > 60.0 (>60); GLUCOSE, FASTING 87 MG/DL (70-100); LIPASE 121 U/L (73-393); POTASSIUM SERUM 3.7 MEQ/L (3.5-5.1); SODIUM LEVEL 136 MEQ/L (136-145); TOTAL PROTEIN 8.1 GM/DL (6.4-8.2)
[2022-04-03 16:28] LABS: HCG, SERUM QUALITATIVE NEGATIVE (NEGATIVE)
[2022-04-03] MEDS ORDERED: ISOVUE-370 76% 100ML VIAL As Ordered ONE (16:51)
[2022-04-03 17:00] VITALS: BP 112/63
[2022-04-03] MEDS ORDERED: MIRA3350 PO (19:21)
[2022-04-03] MEDS ORDERED: ONDA4TAB6 PO (19:22)
== END 2022-04-03 19:36 | disposition home or self-care (01) ==
LOC: M ED 13:29
DX: R11.10 Vomiting, unspecified (principal); K59.00 Constipation, unspecified; K80.20 Calculus of gallbladder without cholecystitis without obstruction
CPT/HCPCS: 36415; 74177; 76705; 80048; 80076; 81001; 83690; 84703; 85025; 96361; 96374; 96375; 99284; J2270; J2405; Q9967

== ENCOUNTER → 2025-08-06 | Outpatient (RCR) ==
[~2025-08-06] MED LIST changes: +MIRA3350 PO; +ONDA-282 PO
== END ==
LOC: M EMPSKH 07-19 14:33
PROVIDERS: ATTEND Family Medicine
DX: Z20.828 Contact with and (suspected) exposure to other viral communicable diseases (principal)

== ENCOUNTER → 2025-09-06 | Outpatient (RCR) | LOC: M EMPSKH 08-07 07:32 | PROVIDERS: ATTEND Family Medicine | DX: Z20.828 Contact with and (suspected) exposure to other viral communicable diseases (principal) ==